=== PATIENT | male | born 1985 | race Caucasian/White ===

== ENCOUNTER 2018-03-12 08:04 | Emergency (ER) | payer OTHER ==
[2018-03-12] MEDS ORDERED: NA CHLORIDE 0.9% 1,000 ML ONE (09:17)
[2018-03-12] MEDS ORDERED: IPRATROPIUM BROM 0.5MG/2.5ML ONE (09:17)
[2018-03-12] MEDS ORDERED: ALBUTEROL 2.5 MG/3 ML NEB SOL ONE ×2 (09:17→11:17)
[2018-03-12] MEDS ORDERED: Levofloxacin 750mg IV 750 MG/150 ML BAG IV ONE (09:17)
[2018-03-12] MEDS ORDERED: METHYLPREDNISOLONE 125 MG INJ ONE (09:17)
--- NOTE | 2018-03-12 09:49 | RAD REPORT ---
EXAM DESCRIPTION: RAD - Chest Single View - 03/12/2018 9:39 am CLINICAL HISTORY: COUGH Chest pain. COMPARISON: None FINDINGS: Portable technique limits examination quality. The lungs are grossly clear. The heart is normal in size. No displaced fractures. IMPRESSION: No acute intrathoracic process suspected.
[2018-03-12 10:11] LABS: Absolute Lymphocytes (CBC) 4.3 K/uL (0.7-4.9); Absolute Neutrophil 7.7 K/uL (1.8-8.0); Basophils % 0.5 % (0-1.3); Eosinophils % 1.5 % (0-4.4); Hematocrit 44.2 % (39.6-49.0); Lymphocytes % 32.3 % (15.3-44.8); MCH 29.2 pg (27.0-35.0); MCV 84.5 fL (80-100); MPV 9.6 fL (7.6-11.3); Monocytes % 7.8 % (3.3-12.3); RBC Red Blood Cell Count 5.23 M/uL (4.33-5.43)
[2018-03-12 10:15] LABS: ALT/SGPT 96 U/L (12-78); AST/SGOT 30 U/L (15-37); Albumin 4.5 g/dL (3.4-5.0); Alkaline Phosphatase 70 U/L (45-117); BUN Blood Urea Nitrogen 16 mg/dL (7-18); Bicarbonate 30 mmol/L (21-32); Bilirubin Direct 0.1 mg/dL (0-0.2); Bilirubin Total 0.4 mg/dL (0.2-1.0); CKMB Creatine Kinase MB 1.6 ng/mL (0.3-3.6); Creatine Phosphokinase 154 U/L (39-308); Glucose Level 81 mg/dL (74-106); Magnesium 2.4 mg/dL (1.8-2.4); NT PRO-BNP 18 pg/mL (<125); Potassium 4.3 mmol/L (3.5-5.1); Protein, Total 9.1 g/dL (6.4-8.2); Sodium Level 138 mmol/L (136-145); Troponin (Emerg Dept Use Only) < 0.02 ng/mL (0.0-0.045)
[2018-03-12] MEDS ORDERED: predniSONE 20 MG TAB ONE (10:50)
--- NOTE | 2018-03-12 10:58 | RAD REPORT ---
EXAM DESCRIPTION: CT - Chest For Pe Angio - 03/12/2018 10:37 am CLINICAL HISTORY: Chest pain and shortness of breath COMPARISON: None. TECHNIQUE: Dynamically enhanced axial 3 mm thick images of the chest were obtained during administra tion of <100> mL Isovue 370 IV contrast. Coronal and oblique reconstruction images were generated and reviewed. Exam utilizes a protocol for optimal evaluation of pulmonary arterial tree. Maximum intensity projections 3D imaging was utilized All CT scans are performed using dose optimization technique as appropriate and may include automated exposure control or mA/KV adjustment according to patient size. FINDINGS: The opacification of the pulmonary arteries is suboptimal. A gross pulmonary embolus is no t seen. A thoracic aortic aneurysm is not noted. A pleural effusion is not seen. A pericardial effusion is not seen. A lung consolidation is not present. IMPRESSION: Negative for a gross pulmonary embolism.
--- NOTE | 2018-03-12 11:00 | EKG ---
Test Date: 2018-03-12 Test Time: 09:29:37 Pulp Beater: JESSICA MEASUREMENT RESULTS: Intervals: Rate: 54 CT: 118 QRSD: 108 QT: 426 QTc: 403 [place]: P: 11 CT: 118 QRS: 23 T: 35 INTERPRETIVE STATEMENTS: Sinus bradycardia with marked sinus arrhythmia Otherwise normal ECG No previous ECG available for comparison Electronically Signed On 03-12-18 10:59:48 CDT by Evgeny Orozco
--- NOTE | 2018-03-12 11:05 | EDPHYS ---
Physician Documentation [facility] Name: Isaiah Mello Age: 32 yrs Sex: Male : 1985 Arrival Date: 03/12/2018 Time: 08:09 Bed 13 Private MD: None, None ED Physician Felice De Dios HPI: 03/12 08:52 This 32 yrs old Male presents to ER via Ambulatory with complaints of jazmyn Breathing Difficulty, Cough. 08:52 The patient has shortness of breath at rest, with light activity. Onset: The jazmyn symptoms/episode began/occurred 5 day(s) ago. Duration: The symptoms are continuous, and are steadily getting worse. The patient's shortness of breath is aggravated by supine position, is alleviated by prescription meds, application of supplemental oxygen. Associated signs and symptoms: Pertinent positives: chest pain, productive cough. Severity of symptoms: At their worst the symptoms were moderate in the emergency department the symptoms have improved moderately. The patient has experienced similar episodes in the past, a few times. Historical: - Allergies: 08:17 No Known Allergies; sv - Home Meds: 08:17 irbesartan 150 mg oral tab [Active]; sv - PMHx: 08:17 Asthma; sv - Immunization history:: Adult Immunizations up to date. - Social history:: Smoking status: unknown. - Ebola Screening: : No symptoms or risks identified at this time. ROS: 08:54 Constitutional: Negative for fever, chills, and weight loss, Eyes: Negative for injury, jazmyn pain, redness, and discharge, ENT: Negative for injury, pain, and discharge, Neck: Negative for injury, pain, and swelling, Cardiovascular: Negative for chest pain, palpitations, and edema, Abdomen/GI: Negative for abdominal pain, nausea, vomiting, diarrhea, and constipation, Back: Negative for injury and pain, : Negative for injury, bleeding, discharge, and swelling, MS/Extremity: Negative for injury and deformity, Skin: Negative for injury, rash, and discoloration, Neuro: Negative for headache, weakness, numbness, tingling, and seizure, Psych: Negative for depression, anxiety, suicide ideation, homicidal ideation, and hallucinations, Allergy/Immunology: Negative for hives, rash, and allergies, Endocrine: Negative for neck swelling, polydipsia, polyuria, polyphagia, and marked weight changes, Hematologic/Lymphatic: Negative for swollen nodes, abnormal bleeding, and unusual bruising. 08:54 Respiratory: Positive for cough, shortness of breath, wheezing, expiratory. 08:54 Abdomen/GI: Positive for abdominal distension. 08:54 MS/extremity: Negative for acute changes, decreased range of motion, erythema, swelling, tenderness, warmth. Exam: 08:54 Constitutional: This is a well developed, well nourished patient who is awake, alert, jazmyn and in no acute distress. Head/Face: Normocephalic, atraumatic. Eyes: Pupils equal round and reactive to light, extra-ocular motions intact. Lids and lashes normal. Conjunctiva and sclera are non-icteric and not injected. Cornea within normal limits. Periorbital areas with no swelling, redness, or edema. ENT: Nares patent. No nasal discharge, no septal abnormalities noted. Tympanic membranes are normal and external auditory canals are clear. Oropharynx with no redness, swelling, or masses, exudates, or evidence of obstruction, uvula midline. Mucous membranes moist. Neck: Trachea midline, no thyromegaly or masses palpated, and no cervical lymphadenopathy. Supple, full range of motion without nuchal rigidity, or vertebral point tenderness. No Meningismus. Chest/axilla: Normal chest wall appearance and motion. Nontender with no deformity. No lesions are appreciated. Cardiovascular: Regular rate and rhythm with a normal S1 and S2. No gallops, murmurs, or rubs. Normal PMI, no JVD. No pulse deficits. Abdomen/GI: Soft, non-tender, with normal bowel sounds. No distension or tympany. No guarding or rebound. No evidence of tenderness throughout. Back: No spinal tenderness. No costovertebral tenderness. Full range of motion. Male : Normal genitalia with no discharge or lesions. Skin: Warm, dry with normal turgor. Normal color with no rashes, no lesions, and no evidence of cellulitis. MS/ Extremity: Pulses equal, no cyanosis. Neurovascular intact. Full, normal range of motion. Neuro: Awake and alert, GCS 15, oriented to person, place, time, and situation. Cranial nerves II-XII grossly intact. Motor strength 5/5 in all extremities. Sensory grossly intact. Cerebellar exam normal. Normal gait. Psych: Awake, alert, with orientation to person, place and time. Behavior, mood, and affect are within normal limits. 08:54 Respiratory: mild respiratory distress is noted, Respirations: labored breathing, that is mild, that is moderate, Breath sounds: decreased breath sounds, rhonchi, wheezing: Vital Signs: 08:14 BP 145 / 98; Pulse 72; Resp 17; Temp 98(O); Pulse Ox 98% on R/A; tw2 09:15 BP 123 / 78; Pulse 59; Resp 17; Pulse Ox 99% on R/A; tw2 10:18 BP 132 / 65; Pulse 72; Resp 17; Pulse Ox 96% on R/A; tw2 12:11 BP 116 / 77; Pulse 67; Resp 18; Pulse Ox 98% on R/A; tw2 MDM: 08:10 Patient medically screened. [facility] 08:55 Data reviewed: vital signs, nurses notes, lab test result(s), EKG, radiologic studies, [facility] CT scan, plain films. 03/12 08:52 Order name: Basic Metabolic Panel; Complete Time: 10:24 [facility] 03/12 08:52 Order name: CBC with Diff; Complete Time: 10:24 [facility] 03/12 08:52 Order name: Ckmb; Complete Time: 10:24 [facility] 03/12 08:52 Order name: CPK; Complete Time: 10:24 [facility] 03/12 08:52 Order name: LFT's; Complete Time: 10:24 [facility] 03/12 08:52 Order name: Magnesium; Complete Time: 10:24 [facility] 03/12 08:52 Order name: NT PRO-BNP; Complete Time: 10:24 [facility] 03/12 08:52 Order name: PT-INR; Complete Time: 10:24 [facility] 03/12 08:52 Order name: Ptt, Activated; Complete Time: 10:24 [facility] 03/12 08:52 Order name: Troponin (emerg Dept Use Only); Complete Time: 10:24 [facility] 03/12 08:52 Order name: XRAY Chest (1 view); Complete Time: 10:24 [facility] 03/12 08:52 Order name: CT Chest For PE Angio; Complete Time: 11:04 [facility] 03/12 08:52 Order name: Blood Culture Adult (2) [facility] 03/12 10:28 Order name: ABG [facility] 03/12 08:52 Order name: EKG; Complete Time: 08:53 [facility] 03/12 08:52 Order name: Cardiac monitoring; Complete Time: 10:39 [facility] 03/12 08:52 Order name: EKG - Nurse/Tech; Complete Time: 10:39 [facility] 03/12 08:52 Order name: IV Saline Lock; Complete Time: 10:39 [facility] 03/12 08:52 Order name: Labs collected and sent; Complete Time: 10:39 [facility] 03/12 08:52 Order name: O2 Per Protocol; Complete Time: 10:39 [facility] 03/12 08:52 Order name: O2 Sat Monitoring; Complete Time: 10:40 [facility] Administered Medications: 09:20 Drug: SOLU-Medrol 125 mg Route: IVP; Site: right antecubital; tw2 10:03 Follow up: Response: No adverse reaction tw2 09:25 Drug: NS 0.9% 500 ml Route: IV; Rate: bolus; Site: right antecubital; tw2 10:02 Follow up: Response: No adverse reaction; IV Status: Completed infusion; IV Intake: tw2 500ml 09:31 Drug: Albuterol - atroVENT (3:1) (2.5 mg - 0.5 mg) 3 ml Route: Nebulizer; tw2 10:03 Follow up: Response: No adverse reaction tw2 09:55 Drug: levofloxacin 750 mg Volume: 150 ml; Route: IVPB; Infused Over: 90 mins; Site: tw2 right antecubital; 11:52 Follow up: Response: No adverse reaction; IV Status: Completed infusion tw2 10:03 Drug: NS 0.9% 1000 ml Route: IV; Rate: 125 ml/hr; Site: right antecubital; tw2 12:10 Follow up: Response: No adverse reaction; IV Status: Order to discontinue infusion tw2 10:50 Drug: predniSONE 60 mg Route: PO; tw2 11:15 Follow up: Response: No adverse reaction tw2 11:15 Drug: Albuterol 5 mg Route: Inhalation; tw2 11:55 Follow up: Response: No adverse reaction tw2 Disposition: 03/12/18 11:05 Discharged to Home. Impression: Dyspnea, unspecified, Obesity, unspecified, Asthma. - Condition is Stable. - Discharge Instructions: Allergies, Adult, Asthma, Adult, Obesity, Adult, Shortness of Breath, Shortness of Breath, Xlbi-do-Oenm, Asthma, Adult, Sblj-tu-Oksg. - Prescriptions for Levaquin 750 mg Oral Tablet - take 1 tablet by ORAL route once daily for 10 days; 7 tablet. Albuterol Sulfate 2.5 mg /3 mL (0.083 %) Inhalation Solution for Nebulization - inhale 1 unit by NEBULIZATION route every 8 hours As needed; 1 box. Prednisone 20 mg Oral Tablet - take 2 tablet by ORAL route once daily for 5 days; 10 tablet. Albuterol Sulfate 90 mcg/actuation - inhale 1-2 puff by INHALATION route every 4-6 hours; 1 Inhaler. - Medication Reconciliation Form, Thank You Letter, Antibiotic Education, Prescription Opioid Use, Work release form form. - Follow up: Private Physician; When: 2 - 3 days; Reason: Recheck today's complaints, Continuance of care, Re-evaluation by your physician. Follow up: Lamin Lizarraga; When: 2 - 3 days; Reason: Recheck today's complaints, Re-evaluation by your physician. - Problem is new. - Symptoms have improved. Signatures: Dispatcher [employer] Jacquelyn Shukla, RN RN Felice Shay MD MD cha Wise, Tara, RN RN tw2 Corrections: (The following items were deleted from the chart) 12:11 11:05 03/12/2018 11:05 Discharged to Home. Impression: Dyspnea, unspecified; Obesity, tw2 unspecified; Asthma. Condition is Stable. Discharge Instructions: Allergies, Adult, Asthma, Adult, Obesity, Adult, Shortness of Breath, Shortness of Breath, Kloo-rr-Iack, Asthma, Adult, Jwjv-tt-Yian. Prescriptions for Levaquin 750 mg Oral Tablet - take 1 tablet by ORAL route once daily for 10 days; 7 tablet, Albuterol Sulfate 2.5 mg /3 mL (0.083 %) Inhalation Solution for Nebulization - inhale 1 unit by NEBULIZATION route every 8 hours As needed; 1 box, Prednisone 20 mg Oral Tablet - take 2 tablet by ORAL route once daily for 5 days; 10 tablet, Albuterol Sulfate 90 mcg/actuation - inhale 1-2 puff by INHALATION route every 4-6 hours; 1 Inhaler. and Forms are Work release form, Antibiotic Education, Medication Reconciliation Form, Thank You Letter, Prescription Opioid Use. Follow up: Private Physician; When: 2 - 3 days; Reason: Recheck today's complaints, Continuance of care, Re-evaluation by your physician. Follow up: Lamin Lizarraga; When: 2 - 3 days; Reason: Recheck today's complaints, Re-evaluation by your physician. Problem is new. Symptoms have improved. jazmyn
--- NOTE | 2018-03-12 11:05 | ER ---
Nurse's Notes [facility] Name: Isaiah Mello Age: 32 yrs Sex: Male : 1985 Arrival Date: 03/12/2018 Time: 08:09 Bed 13 Private MD: None, None Diagnosis: Dyspnea, unspecified;Obesity, unspecified;Asthma Presentation: 03/12 08:16 Presenting complaint: Patient states: i went to an urgent care a week ago Sunday, they tw2 put me on a steroid dose back and azithromycin, but i am still not better, i am wheezing and coughing, new medicine started Irbesartan 150 mg because they recalled valsartan. Transition of care: patient was not received from another setting of care. Onset of symptoms was March 12, 2018. Risk Assessment: Do you want to hurt yourself or someone else? Patient reports no desire to harm self or others. Initial Sepsis Screen: Does the patient meet any 2 criteria? No. Patient's initial sepsis screen is negative. Does the patient have a suspected source of infection? No. Patient's initial sepsis screen is negative. Care prior to arrival: None. 08:16 Method Of Arrival: Ambulatory tw2 08:16 Acuity: DENNY 3 tw2 Triage Assessment: 08:19 Respiratory: Onset: The symptoms/episode began/occurred a week ago sunday, the patient tw2 has moderate shortness of breath. Historical: - Allergies: 08:17 No Known Allergies; sv - Home Meds: 08:17 irbesartan 150 mg oral tab [Active]; sv - PMHx: 08:17 Asthma; sv - Immunization history:: Adult Immunizations up to date. - Social history:: Smoking status: unknown. - Ebola Screening: : No symptoms or risks identified at this time. Screenin:14 Abuse screen: Denies threats or abuse. Denies injuries from another. Nutritional sv screening: No deficits noted. Tuberculosis screening: No symptoms or risk factors identified. Fall Risk None identified. Assessment: 08:17 General: Appears in no apparent distress. obese, Behavior is calm, cooperative, tw2 appropriate for age. Pain: Complains of pain in in my lungs when i breathe deep. Neuro: Level of Consciousness is awake, alert, obeys commands, Oriented to person, place, time, situation. Cardiovascular: Heart tones S1 S2 Capillary refill < 3 seconds Patient's skin is warm and dry. Rhythm is regular. Respiratory: Airway is patent Respiratory effort is even, unlabored, Respiratory pattern is regular, symmetrical, Breath sounds with wheezes bilaterally. Respiratory: Reports cough that is. GI: No signs and/or symptoms were reported involving the gastrointestinal system. Abdomen is round non-distended, obese. : No signs and/or symptoms were reported regarding the genitourinary system. EENT: No signs and/or symptoms were reported regarding the EENT system. EENT: Reports nasal congestion nasal discharge. Derm: No signs and/or symptoms reported regarding the dermatologic system. Musculoskeletal: Range of motion: intact in all extremities. 09:31 Reassessment: Patient appears in no apparent distress at this time. No changes from tw2 previously documented assessment. Patient and/or family updated on plan of care and expected duration. Pain level reassessed. Patient is alert, oriented x 3, equal unlabored respirations, skin warm/dry/pink. 10:18 Reassessment: Patient appears in no apparent distress at this time. No changes from tw2 previously documented assessment. Patient and/or family updated on plan of care and expected duration. Pain level reassessed. Patient is alert, oriented x 3, equal unlabored respirations, skin warm/dry/pink. 11:10 Reassessment: Patient appears in no apparent distress at this time. No changes from tw2 previously documented assessment. Patient and/or family updated on plan of care and expected duration. Pain level reassessed. Patient is alert, oriented x 3, equal unlabored respirations, skin warm/dry/pink. 12:10 Reassessment: Patient appears in no apparent distress at this time. No changes from tw2 previously documented assessment. Patient and/or family updated on plan of care and expected duration. Pain level reassessed. Patient is alert, oriented x 3, equal unlabored respirations, skin warm/dry/pink. Vital Signs: 08:14 BP 145 / 98; Pulse 72; Resp 17; Temp 98(O); Pulse Ox 98% on R/A; tw2 09:15 BP 123 / 78; Pulse 59; Resp 17; Pulse Ox 99% on R/A; tw2 10:18 BP 132 / 65; Pulse 72; Resp 17; Pulse Ox 96% on R/A; tw2 12:11 BP 116 / 77; Pulse 67; Resp 18; Pulse Ox 98% on R/A; tw2 ED Course: 08:09 Patient arrived in ED. mr 08:09 None, None is Private Physician. mr 08:10 Felice D eDios MD is Attending Physician. jazmyn 08:14 Arm band placed on right wrist. sv 08:14 Patient has correct armband on for positive identification. Bed in low position. Adult sv w/ patient. Pulse ox on. NIBP on. Door closed. Head of bed elevated. 08:15 Awaiting ED provider evaluation. sv 08:15 Anne-Marie Rivera, RN is Primary Nurse. tw2 08:17 Triage completed. tw2 09:20 Inserted saline lock: 22 gauge in right antecubital area, using aseptic technique. tw2 Blood collected. 09:38 X-ray completed. Portable x-ray completed in exam room. jr1 09:39 XRAY Chest (1 view) In Process Unspecified. EDMS 09:42 EKG done, by retread technician. reviewed by Felice De Dios MD. at1 10:36 CT completed. Patient tolerated procedure well. Patient moved to CT via wheelchair. jg6 Patient moved back from CT. 10:37 CT Chest For PE Angio In Process Unspecified. EDMS 11:04 Lamin Lizarraga MD is Referral Physician. jazmyn 11:16 Awaiting: completion of IV abx prior to discharge. tw2 12:09 No provider procedures requiring assistance completed. IV discontinued, intact, tw2 bleeding controlled, No redness/swelling at site. Pressure dressing applied. Administered Medications: 09:20 Drug: SOLU-Medrol 125 mg Route: IVP; Site: right antecubital; tw2 10:03 Follow up: Response: No adverse reaction tw2 09:25 Drug: NS 0.9% 500 ml Route: IV; Rate: bolus; Site: right antecubital; tw2 10:02 Follow up: Response: No adverse reaction; IV Status: Completed infusion; IV Intake: tw2 500ml 09:31 Drug: Albuterol - atroVENT (3:1) (2.5 mg - 0.5 mg) 3 ml Route: Nebulizer; tw2 10:03 Follow up: Response: No adverse reaction tw2 09:55 Drug: levofloxacin 750 mg Volume: 150 ml; Route: IVPB; Infused Over: 90 mins; Site: tw2 right antecubital; 11:52 Follow up: Response: No adverse reaction; IV Status: Completed infusion tw2 10:03 Drug: NS 0.9% 1000 ml Route: IV; Rate: 125 ml/hr; Site: right antecubital; tw2 12:10 Follow up: Response: No adverse reaction; IV Status: Order to discontinue infusion tw2 10:50 Drug: predniSONE 60 mg Route: PO; tw2 11:15 Follow up: Response: No adverse reaction tw2 11:15 Drug: Albuterol 5 mg Route: Inhalation; tw2 11:55 Follow up: Response: No adverse reaction tw2 Intake: 10:02 IV: 500ml; Total: 500ml. tw2 Outcome: 11:05 Discharge ordered by MD. eldridge 12:10 Discharged to home ambulatory, with significant other. tw 12:10 Condition: stable 12:10 Discharge instructions given to patient, significant other, Instructed on discharge instructions, follow up and referral plans. medication usage, Demonstrated understanding of instructions, follow-up care, medications, Prescriptions given X 4. 12:11 Patient left the ED. tw Signatures: Dispatcher [employer] EDJacquelyn Doshi RN RN Felice Shay MD MD cha Rivera, Maria mr Carrie, Sigrid jr1 Galilea Velasquez, mba intern EKG Anne-Marie Alva RN RN tw2 Mariam Sharp jg6 Corrections: (The following items were deleted from the chart) 09:08 08:16 Acuity: DENNY 4 tw2 tw 09:31 08:14 Temp 98F Oral; sv tw 09:33 09:15 BP 123 / 78; Pulse 52bpm; Resp 17bpm; Pulse Ox 99% RA; tw2 tw2
[2018-03-12 11:47] LABS: Blood Gas Oxyhemoglobin 95.5 % (94-97); Blood O2 Saturation 97.4 % (92-98.5)
== END 2018-03-12 12:11 | disposition home or self-care (01) ==
LOC: ER 08:04
DX: J45.909 Unspecified asthma, uncomplicated (principal); E66.9 Obesity, unspecified
CPT/HCPCS: 36415; 71045; 71275; 80048; 80076; 82550; 82553; 82805; 83735; 83880; 84484; 85025; 85610; 85730; 87040; 93005; 94640; 96361; 96365; 96366; 96375; 99285; J2930; J7030; J7512; Q9967

== ENCOUNTER 2022-03-20 16:44 | Emergency (ER) | payer OTHER ==
--- OUTSIDE RECORDS SUMMARY | 2022-03-20 16:47 | XMS REPORT | Continuity of Care Document ---
:1985 Author Organization [facility] t Address [address] [place] [address] Care Team Providers Name Role Phone PRUDENCIO LUND Attending Clinician Unavailable Payers Payer Name Policy Type Policy Number Effective Date Expiration Date S ourjoselyn OPEN [employer]ESS [employer] [id number] 00:00:00 [employer] EPO Problems This patient has no known problems. Allergies, Adverse Reactions, Alerts This patient has no known allergies or adverse reactions. Medications This patient has no known medications. Procedures This patient has no known procedures. Encounters Start End Encounter Admission Attending Care Care Encounter Source Date/Time Date/Time Type Type Clinicians Facility Department ID 2021-11-17 Outpatient [facility] [id number] [place] 13:08:43 PRUDENCIO [id number] [facility] 2021-10-20 [facility] [id number] [place] 14:22:08 PRUDENCIO [id number] [facility] 2021-10-19 Outpatient [facility] [id number] [place] 00:19:06 PRUDENCIO [id number] [facility] 2021-10-[address] [facility] [id number] [place] 09:00:08 [id number] [facility] 2021-08-26 [facility] [id number] [place] 10:18:48 PRUDENCIO [facility] 2019-03-06 Inpatient [id number] 12:13:00 [facility] l Results This patient has no known results.
[2022-03-20] MEDS ORDERED: NA CHLORIDE 0.9% 1,000 ML ONE (18:05)
[2022-03-20 18:06] LABS: Absolute Lymphocytes (CBC) 2.5 K/uL (0.7-4.9); Hematocrit 40.4 % (39.6-49.0); Lymphocytes % 30.6 % (15.3-44.8); MCV 87.3 fL (80-100); MPV 10.2 fL (7.6-11.3); RBC Red Blood Cell Count 4.63 M/uL (4.33-5.43)
[2022-03-20 18:39] LABS: Albumin 4.1 g/dL (3.4-5.0); Bilirubin Total 0.8 mg/dL (0.2-1.0); Magnesium 2.5 mg/dL (1.8-2.4); Potassium 3.8 mmol/L (3.5-5.1); Protein, Total 7.4 g/dL (6.4-8.2); Troponin High Sensitivity 4.4 pg/mL (<58.9)
--- NOTE | 2022-03-20 18:53 | RAD REPORT ---
EXAM DESCRIPTION: [place] Single View03/20/2022 6:34 pm CLINICAL HISTORY: Shortness breath COMPARISON: 2018 FINDINGS: Mild elevation left hemidiaphragm The lungs appear clear of acute infiltrate. The heart is normal size
--- NOTE | 2022-03-20 19:11 | RAD REPORT ---
EXAM DESCRIPTION: CT - Head Brain Wo Cont - 03/20/2022 7:04 pm CLINICAL HISTORY: Left arm numbness COMPARISON: None. TECHNIQUE: Computed axial tomography of the head was obtained. IV contrast was not requested. All CT scans are performed using dose optimization technique as appropriate and may include automated exposure control or mA/KV adjustment according to patient size. FINDINGS: An intracranial bleed is not seen . The ventricles are normal in caliber. No significant hypodense areas within the brain visualized No extra-axial fluid collection is noted. Fluid within the sinuses/ mastoids is not seen. IMPRESSION: No acute intracranial abnormality is seen. If patient's symptoms persist MRI of the bra in would be recommended.
--- NOTE | 2022-03-20 20:51 | EDPHYS ---
Physician Documentation [facility] Name: Isaiah Mello Age: 36 yrs Sex: Male : 1985 Arrival Date: 03/20/2022 Time: 16:47 Bed 8 Private MD: ED Physician Carlos Cho HPI: 03/20 18:27 This 36 yrs old Male presents to ER via Ambulatory with complaints of Weakness, sd2 Numbness Of Arm. 18:27 36-year-old male with a history of asthma presents with chief complaint of paresthesias sd2 of his left arm and fatigue. He reports he initially started with significant fatigue approximately 1 week ago that has progressively worsened. He reports he noticed yesterday that he had a pins and needle sensation in his left hand and left arm. He also reports feeling a sensation of heaviness in the left side of his face but has not noticed any facial droop. He reports occasional difficulty with saying the correct word such as saying brisket instead of chicken when he was referring to his sandwich today. He denies noticing any significant focal weakness of his extremities but does complain of generalized weakness. He also endorses associated chest tightness and shortness of breath. 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 He also reports talking to his [id number] heart transplant surgeon who reported they were concerned for "blockages" and referred him to the closest ER. He also reports that that physician would like to be called once his results are back and they may possibly transfer him for further work-up. He denies any fevers, cough, URI symptoms, vomiting, diarrhea or urinary symptoms.. Historical: - Allergies: 16:58 No Known Allergies; ph - PMHx: 16:58 Asthma; ph - Immunization history:: Adult Immunizations unknown. - Social history:: Smoking status: Patient denies any tobacco usage or history of. ROS: 18:27 Constitutional: Negative for fever, chills, and weight loss, Eyes: Negative for injury, sd2 pain, redness, and discharge, Cardiovascular: Negative for chest pain, palpitations, and edema. Positive for chest tightness. Respiratory: Positive for shortness of breath, Negative for cough, wheezing. Abdomen/GI: Negative for abdominal pain, nausea, vomiting, diarrhea. MS/Extremity: Negative for injury and deformity, Skin: Negative for injury, rash, and discoloration, Neuro: Negative for headache, Positive for numbness and tingling. Exam: 18:27 Constitutional: This is a well developed, well nourished patient who is awake, alert, sd2 and in no acute distress. Head/Face: Normocephalic, atraumatic. Eyes: EOMI, normal conjunctiva bilaterally Chest/axilla: Normal chest wall appearance and motion. Nontender with no deformity. Cardiovascular: Regular rate and rhythm with a normal S1 and S2. No gallops, murmurs, or rubs. 2+ distal pulses. Respiratory: Lungs have equal breath sounds bilaterally, clear to auscultation and percussion. No rales, rhonchi or wheezes noted. No increased work of breathing, no retractions or nasal flaring. Abdomen/GI: Soft, non-tender, with normal bowel sounds. No guarding or rebound. No evidence of tenderness throughout. Skin: Warm, dry with normal turgor. Normal color with no rashes, no lesions, and no evidence of cellulitis. MS/ Extremity: Pulses equal, no cyanosis. Neurovascular intact. Full, normal range of motion. Ambulatory without difficulty. Neuro: Awake and alert, GCS 15, oriented to person, place, time, and situation. Cranial nerves II-XII grossly intact. Motor strength 5/5 in all extremities. Sensory grossly intact. Cerebellar exam normal. 18:27 ECG was reviewed by the Attending Physician. Sinus bradycardia, rate 59, no STEMI criteria Vital Signs: 16:52 BP 146 / 87; Pulse 70; Resp 18; Temp 98.0; Pulse Ox 100% on R/A; Weight 111.13 kg; ph Height 6 ft. 0 in. (182.88 cm); 20:19 BP 119 / 69; Pulse 70; Resp 17; Pulse Ox 100% ; jb4 20:25 Pulse 50; Resp 17 S; Pulse Ox 100% on R/A; aa9 21:30 BP 107 / 63; Pulse 48; Resp 16; Pulse Ox 100% on R/A; jb4 16:52 Body Mass Index 33.23 (111.13 kg, 182.88 cm) ph NIH Stroke Scale Scores: 18:18 NIHSS Score: 0 ph MDM: 18:31 Data reviewed: vital signs, nurses notes. ED course: Differential diagnosis includes sd2 but is not limited to: Dehydration, electrolyte abnormality, UTI, PNA, anemia among others. 19:50 Patient medically screened. ms3 20:50 ED course: Patient and his request transfer to Dr Keller at [facility] as ms3 they have established a relationship with him. Discussed case with Dr Keller at [facility] and he accepts patient.. 03/20 17:18 Order name: CBC with Diff; Complete Time: 19:10 03/20 17:18 Order name: CMP; Complete Time: 19:10 03/20 17:18 Order name: Magnesium; Complete Time: 19:10 03/20 17:18 Order name: Troponin High Sensitivity; Complete Time: 19:10 03/20 17:18 Order name: CK; Complete Time: 19:10 03/20 17:18 Order name: EKG - Nurse/Tech; Complete Time: 17:59 03/20 17:18 Order name: XRAY Chest (1 view); Complete Time: 19:10 03/20 18:27 Order name: Influenza Screen (a \\T\\ B) 03/20 18:27 Order name: CT Head Brain wo Cont; Complete Time: 20:07 03/20 21:02 Order name: SARS RAPID ms3 Administered Medications: 17:59 Drug: NS 0.9% 1000 ml Route: IV; Rate: 1 bolus; Site: right antecubital; jl7 21:20 Drug: Tylenol 1000 mg Route: PO; jb4 Disposition Summary: 03/20/22 20:51 Transfer Ordered Transfer Location: [facility] ms3 Reason: Higher level of care ms3 Condition: Stable ms3 Problem: new ms3 Symptoms: are unchanged ms3 Accepting Physician: Dr Keller(03/20/22 22:47) jb4 Diagnosis - Bradycardia, unspecified ms3 - Paresthesia of skin ms3 - Other fatigue ms3 Forms: - Medication Reconciliation Form ms3 - SBAR form ms3 NIH Stroke Scale - NIH Stroke Score Date: 03/20/2022 Time: 18:18 Total Score = 0 1a. Level of Consciousness (LOC) - 0(Alert) 1b. Level of Consciousness (LOC) (Month \\T\\ Age) - 0(Both) 1c. LOC Commands (Open \\T\\ Closes Eyes/[place] Operator) - 0(Both) 2. Best Gaze (Lateral Gaze Paresis) - 0(Normal) 3. Visual Field Loss - 0(No visual loss) 4. Facial Palsy - 0(Normal) 5a. Left Arm: Motor (10-second hold) - 0(No drift) 5b. Right Arm: Motor (10-second hold) - 0(No drift) 6a. Left Leg: Motor (5-second hold - always test supine) - 0(No drift) 6b. Right Leg: Motor (5-second hold - always test supine) - 0(No drift) 7. Limb Ataxia (finger/nose \\T\\ heel/[place] - test with eyes open) - 0(Absent) 8. Sensory Loss (pinprick arms/legs/face) - 0(Normal) 9. Best Language: Aphasia (description/naming/reading) - 0(No aphasia) 10. Dysarthria (speech clarity - read or repeat words) - 0(Normal) 11. Extinction and Inattention (visual/tactile/auditory/spatial/personal) - 0(No abnormality) Initials: ph Signatures: Dispatcher [employer] EDUT Marisa Mir, DEREK RN ph Jose Dalton, RN RN jb4 Dayana Tuttle RN RN jl7 Carlos Cho DO DO ms3 Jacquelyn Marie MD MD sd2 Corrections: (The following items were deleted from the chart) 22:28 18:28 SARS-COV-2 RT PCR+MOL.LAB.VITALYZ ordered. EDUT EDMS 22:47 20:51 Dr Keller ms3 jb4
--- NOTE | 2022-03-20 20:51 | ER ---
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 Coronavirus screen: Vaccine status:. Ebola Screen: No symptoms or risks identified at this time. An acute neurological deficit is present. Pre-hospital glucose is not applicable to this patient. Initial Sepsis Screen: Does the patient meet any 2 criteria? No. Patient's initial sepsis screen is negative. Does the patient have a suspected source of infection? No. Patient's initial sepsis screen is negative. Risk Assessment: Do you want to hurt yourself or someone else? Patient reports no desire to harm self or others. Onset of symptoms was March 20, 2022. 16:52 Method Of Arrival: Ambulatory ph 16:52 Acuity: DENNY 3 ph Triage Assessment: 18:16 General: Appears in no apparent distress. comfortable, well groomed, Behavior is ph cooperative, appropriate for age, Denies fever, feeling ill. Pain: Complains of pain in chest, head, L shoulder, L neck. Neuro: Level of Consciousness is awake, alert, obeys commands, Oriented to person, place, time, situation, Reports numbness in left arm paresthesias. Cardiovascular: Reports chest pain, diaphoresis, fatigue, lightheadedness, Capillary refill < 3 seconds in bilateral fingers Patient's skin is warm and dry. Respiratory: Airway is patent Respiratory effort is even, unlabored. GI: No signs and/or symptoms were reported involving the gastrointestinal system. Derm: Skin is intact, Skin is pink, warm \T\ dry. Musculoskeletal: Circulation, motion, and sensation intact. Range of motion: intact in all extremities. Stroke Activation: Symptom onset > 6 hours Physician: Stroke Attending; Name: ; Notified At: ; Arrived At: Physician: Chief Stroke Resident; Name: ; Notified At: ; Arrived At: Physician: Stroke Resident; Name: ; Notified At: ; Arrived At: Physician: ED Attending; Name: ; Notified At: ; Arrived At: Physician: ED Resident; Name: ; Notified At: ; Arrived At: Historical: - Allergies: 16:58 No Known Allergies; ph - PMHx: 16:58 Asthma; ph - Immunization history:: Adult Immunizations unknown. - Social history:: Smoking status: Patient denies any tobacco usage or history of. Screenin:19 Abuse screen: Denies threats or abuse. Denies injuries from another. Nutritional ph screening: No deficits noted. Tuberculosis screening: No symptoms or risk factors identified. Fall Risk None identified. Assessment: 18:14 Reassessment: Pt in triage for ERP assessment. ph 18:18 VAN Scoring: Arm Drift: Patients demonstrates NO arm weakness. Patient is VAN Negative. ph 20:10 Reassessment: Provider at the bedside. General: Appears in no apparent distress. jb4 uncomfortable, Behavior is calm, cooperative, appropriate for age. Pain: Denies pain. Neuro: Level of Consciousness is awake, alert, obeys commands, Oriented to person, place, time, situation, Reports numbness in left arm, left side of face Tingling to left side of face and left arm. Cardiovascular: Patient's skin is warm and dry. Respiratory: Airway is patent Respiratory effort is even, unlabored, Respiratory pattern is regular, symmetrical. GI: No signs and/or symptoms were reported involving the gastrointestinal system. : No signs and/or symptoms were reported regarding the genitourinary system. EENT: No signs and/or symptoms were reported regarding the EENT system. Derm: Skin is intact, Skin is pink, warm \T\ dry. Musculoskeletal: Circulation, motion, and sensation intact. Range of motion: intact in all extremities. 21:00 Reassessment: Patient appears in no apparent distress at this time. Patient and/or jb4 family updated on plan of care and expected duration. Pain level reassessed. Patient is alert, oriented x 3, equal unlabored respirations, skin warm/dry/pink. 22:00 Reassessment: Patient appears in no apparent distress at this time. Patient and/or jb4 family updated on plan of care and expected duration. Pain level reassessed. Patient is alert, oriented x 3, equal unlabored respirations, skin warm/dry/pink. Vital Signs: 16:52 BP 146 / 87; Pulse 70; Resp 18; Temp 98.0; Pulse Ox 100% on R/A; Weight 111.13 kg; ph Height 6 ft. 0 in. (182.88 cm); 20:19 BP 119 / 69; Pulse 70; Resp 17; Pulse Ox 100% ; jb4 20:25 Pulse 50; Resp 17 S; Pulse Ox 100% on R/A; aa9 21:30 BP 107 / 63; Pulse 48; Resp 16; Pulse Ox 100% on R/A; jb4 16:52 Body Mass Index 33.23 (111.13 kg, 182.88 cm) ph NIH Stroke Scale Scores: 18:18 NIHSS Score: 0 ph ED Course: 16:47 Patient arrived in ED. rg4 16:58 Triage completed. ph 16:58 Jacquelyn Marie MD is Attending Physician. sd2 16:58 Arm band placed on. ph 17:59 Initial lab(s) drawn, by la, sent to lab. Inserted saline lock: 20 gauge in right jl7 antecubital area, using aseptic technique. Blood collected. 18:36 XRAY Chest (1 view) In Process Unspecified. EDMS 19:06 CT Head Brain wo Cont In Process Unspecified. EDMS 19:36 Attending Physician role handed off by Jacquelyn Marie MD ms3 19:36 Carlos Cho DO is Attending Physician. ms3 19:38 Carlos Cho DO is Attending Physician. ms3 19:46 Jose Dalton, RN is Primary Nurse. jb4 21:10 Initiated transfer to [facility] by Dr. Carlos Cho. wm 21:26 Pt accepted for transfer by Arianna Solorzano. wm 22:46 No provider procedures requiring assistance completed. Patient transferred, IV remains jb4 in place. Administered Medications: 17:59 Drug: NS 0.9% 1000 ml Route: IV; Rate: 1 bolus; Site: right antecubital; jl7 21:20 Drug: Tylenol 1000 mg Route: PO; jb4 Medication: 18:18 VIS not applicable for this client. ph Outcome: 20:51 ER care complete, transfer ordered by . ms3 22:46 Transferred by ground EMS Transfer form completed. X-rays sent w/ patient. jb4 22:46 Condition: stable 22:46 Discharge instructions given to patient, Instructed on the need for transfer, Demonstrated understanding of instructions. 22:47 Patient left the ED. jb4 NIH Stroke Scale - NIH Stroke Score Date: 03/20/2022 Time: 18:18 Total Score = 0 1a. Level of Consciousness (LOC) - 0(Alert) 1b. Level of Consciousness (LOC) (Month \T\ Age) - 0(Both) 1c. LOC Commands (Open \T\ Closes Eyes/Progressive Care Unit Registered Nurse) - 0(Both) 2. Best Gaze (Lateral Gaze Paresis) - 0(Normal) 3. Visual Field Loss - 0(No visual loss) 4. Facial Palsy - 0(Normal) 5a. Left Arm: Motor (10-second hold) - 0(No drift) 5b. Right Arm: Motor (10-second hold) - 0(No drift) 6a. Left Leg: Motor (5-second hold - always test supine) - 0(No drift) 6b. Right Leg: Motor (5-second hold - always test supine) - 0(No drift) 7. Limb Ataxia (finger/nose \T\ heel/[place] - test with eyes open) - 0(Absent) 8. Sensory Loss (pinprick arms/legs/face) - 0(Normal) 9. Best Language: Aphasia (description/naming/reading) - 0(No aphasia) 10. Dysarthria (speech clarity - read or repeat words) - 0(Normal) 11. Extinction and Inattention (visual/tactile/auditory/spatial/personal) - 0(No abnormality) Initials: ph Signatures: Dispatcher [employer] EDMA Marisa Mir, RN RN Jackeline Pimentel4 Jose Dalton RN RN jb4 Dayana Tuttle RN RN jl7 Carlos Cho, DO ms3 Chanda Vann Stephanie, MD MD sd2 Angle Cantu, DEREK RN aa9
[2022-03-20] MEDS ORDERED: ACETAMINOPHEN 500 MG TAB ONE (21:27)
[2022-03-20 21:43] LABS: SARS-CoV-2 Antigen Rapid Res Negative (Negative)
--- NOTE | 2022-03-22 06:35 | EKG ---
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
[2022-03-22 07:30] VITALS: O2SAT 100
[2022-03-22 07:36] VITALS: BP 107/63
== END 2022-03-20 22:47 | disposition short-term general hospital (02) ==
LOC: ER 16:44
DX: R00.1 Bradycardia, unspecified (principal); R20.2 Paresthesia of skin; R53.83 Other fatigue; J45.909 Unspecified asthma, uncomplicated; Z20.822 Contact with and (suspected) exposure to COVID-19
CPT/HCPCS: 93005; 85025; 36415; 83735; 82550; 84484; 80053; 70450; 71045; 99285; 87811; J7030